=== PATIENT | male | born 1935 | race Caucasian/White ===

== ENCOUNTER 2018-06-16 17:39 | Inpatient (IN) | payer MEDICARE, MEDICAID ==
--- NOTE | ~2018-06-16 | PN ---
PATIENT:LUIS FELIPE MUSE MEDICAL RECORD: [id number] LOCATION:[facility] ADMISSION DATE: 06/16/18 PROGRESS NOTE DATE OF SERVICE: 06/20/2018 SUBJECTIVE: The patient's case was discussed with staff. He has no new complaint. OBJECTIVE: The patient is in good behavioral control with limited insight about his condition. He tolerates his medicines well. ASSESSMENT: No change in diagnoses. PLAN: Supportive and educational interventions were made. The patient will be transitioned out of the hospital tomorrow. His long-term prognosis is guarded. TRANSINT:[id number] Voice Confirmation ID: [id number] DOCUMENT ID: [id number] LEXUS FOX MD at 1407 CC: [id number] DICTATION DATE: 06/20/18 1511 SENIOR MEDIA DIRECTOR: 06/20/18 1519 DIS IN 06/21/18 [place] [id number] [place] [address]
--- NOTE | ~2018-06-16 | PN ---
PATIENT:LUIS FELIPE MUSE MEDICAL RECORD: [id number] LOCATION:[facility] ADMISSION DATE: 06/16/18 PROGRESS NOTE DATE OF SERVICE: 06/18/2018 SUBJECTIVE: The patient's case was discussed with staff. He has no new complaint. OBJECTIVE: The patient has pretty limited insight about his situation. He does tolerate his medicines well. Eye contact is fair. Concentration is fair. He has not been agitated, but I do not think that is related to an improvement in his condition so much as it is the constant supervision and redirection staff is able to provide. I am going to start him on a low dose of Geodon for his agitated behavior. TRANSINT:[id number] Voice Confirmation ID: [id number] DOCUMENT ID: [id number] LEXUS FOX MD at 1440 CC: [id number] DICTATION DATE: 06/18/18 1411 CORK INSULATOR: 06/18/18 1428 ADM IN [facility] [address] [place] [address]
--- NOTE | ~2018-06-16 | DS ---
PATIENT:LUIS FELIPE MUSE :35 MEDICAL RECORD: [id number] DISCHARGE SUMMARY ADMISSION DATE: 06/16/18 DISCHARGE DATE: 06/21/18 IDENTIFYING DATA: The patient is 82 years old and he is known to me from previous clinical contact. He was admitted to the hospital about a month ago because of aggression at the [facility]. He was discharged about 10 days ago, but then rapidly returned after a week absence with the same problems. The patient has dementia. He does not have any short-term memory, but the fci was indicating that he had been violent and aggressive. Minor adjustments were made to his medications. HOSPITAL COURSE: The patient was admitted to the hospital and started on the same medicines that he was on previously here. He showed no evidence of aggression and was subsequently transitioned back to the [facility]. DISCHARGE DIAGNOSES: AXIS I: Senile dementia of the Alzheimer's type with behavioral disturbances. AXIS II: None. AXIS III: Diabetes, hypertension, anemia of chronic disease. AXIS IV: Moderate stressors. AXIS V: Global assessment of functioning is 30. PLAN: At the time of discharge, the patient was not aggressive. He was tolerating his medicines well. I strongly suspect that the problem is environmental and at the fci, and not related to something underlying his pharmacologic management. I do understand that the fci is much more sparsely staffed than an acute inpatient psychiatric unit where there is someone always available practically at arms length to redirect or attend to the patient's needs. I know that is not something that can happen in long-term care setting, but nevertheless, I think the problems are environmental; and if he returns again, I am going to strongly recommend that a different fci setting, perhaps a dementia unit, would be more appropriate to meet his needs rather than returning him to inpatient psychiatric care every time he has a behavioral outburst. TRANSINT:[id number] Voice Confirmation ID: [id number] DOCUMENT ID: [id number] LEXUS FOX MD at 1341 CC: [id number] DICTATION DATE: 06/21/18 1516 FIRE TECHNICIAN: 06/21/18 1529 DIS IN 06/21/18 [place] [id number] [place] [id number]
--- NOTE | ~2018-06-16 | PN ---
PATIENT:LUIS FELIPE MUSE MEDICAL RECORD: [id number] LOCATION:[facility] ADMISSION DATE: 06/16/18 PROGRESS NOTE DATE OF SERVICE: 06/19/2018 SUBJECTIVE: The patient's case was discussed with staff. He has no new complaint. OBJECTIVE: The patient is in good behavioral control with limited insight about his condition. He generally tolerates his medicines well. He was agitated last night and required p.r.n. medications. I have reviewed his current medications and think that this was probably an unfortunate isolated event related to some of the disruptive patients on the unit upsetting him. ASSESSMENT: No change in diagnoses. PLAN: Current medicines have been reviewed and will be maintained. TRANSINT:[id number] Voice Confirmation ID: [id number] DOCUMENT ID: [id number] LEXUS FOX MD at 1449 CC: [id number] DICTATION DATE: 06/19/18 1520 AUTOMATIC WINDER OPERATOR: 06/19/18 1558 ADM IN [place] [id number] [place] [id number]
--- NOTE | ~2018-06-16 | PSY ---
PATIENT NAME:LUIS FELIPE MUSE MEDICAL RECORD: [id number] : 35 LOCATION:[facility] ADMISSION DATE: 06/16/18 ACCOUNT: [id number] PSYCHIATRIC EVALUATION DATE OF EVALUATION: 06/17/18 IDENTIFYING DATA: The patient is 82 years old and he was admitted to the hospital on a voluntary basis. CHIEF COMPLAINT: Aggression. HISTORY OF PRESENT ILLNESS: The patient was discharged from here about a week ago. He currently returns from the half-way, agitated. He apparently was violent there and aggressive. He has no recollection of this and did receive p.r.n. medication in the Emergency Room. PAST MEDICAL HISTORY: Significant for diabetes and chronic anemia. PAST PSYCHIATRIC HISTORY: Significant for dementia with 1 previous recent hospitalization here. FAMILY HISTORY: Unknown. SOCIAL HISTORY: The patient is from [place]. He is and his lives in [place]. He lives in a half-way here. 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 He has no history of drug or alcohol abuse. MENTAL STATUS EXAMINATION: The patient is awake, alert and oriented to person only. His mood is flat. His affect is constricted. Thought processes are circumstantial. Memory, concentration, and abstraction abilities are at least moderately impaired and he denies that he would actively seek to harm himself or others as well as overt psychotic symptoms. ASSETS: Stable living environment. LIABILITIES: Limited insight. DIAGNOSTIC IMPRESSION: AXIS I: Senile dementia of the Alzheimer's type with behavioral disturbances. AXIS II: None. AXIS III: Diabetes, hypertension, and anemia of chronic disease. AXIS IV: Moderate stressors. AXIS V: Global assessment of functioning is 25. PLAN: At this time, the patient is admitted to the hospital secondary to aggressive and agitated behavior associated with a dementing illness. He will be evaluated both medically, psychologically and socially. He will be treated with both memory enhancing and mood stabilizing medications as deemed appropriate. His long-term prognosis is guarded. TRANSINT:[id number] Voice Confirmation ID: [id number] DOCUMENT ID: [id number] LEXUS FOX MD at 1319 CC: [id number] DICTATION DATE: 06/17/18 1022 ORAL HEALTH THERAPIST: 06/17/18 1140 ADM IN [place] [address] [place] [address]
[2018-06-16 17:51] VITALS: BP 118/57
[2018-06-16 19:35] LABS: BASOPHILS 0.3 % (0-2); EOSINOPHILS 1.9 % (0-7); HEMATOCRIT 22.6 % (42.0-54.0); IMMATURE GRANULOCYTES 0.4 % (0-5); MCH 33.3 pg (26.0-34.0); MCV 107.6 fL (80.0-100.0); MEAN PLATELET VOLUME 10.5 fL (7.4-10.4); MONOCYTES 10.6 % (2-11); NEUTROPHILS 56.8 % (40-80); RDW 18.7 % (11.5-14.5); WBC 6.8 10x3/uL (4.8-10.8)
[2018-06-16 19:39] LABS: PLATELET COUNT 159 10x3/uL (130-400)
[2018-06-16 19:49] LABS: UDS - AMPHET NEGATIVE QUAL (NEGATIVE); UDS - BARB NEGATIVE QUAL (NEGATIVE); UDS - BENZO NEGATIVE QUAL (NEGATIVE); UDS - COCAINE NEGATIVE QUAL (NEGATIVE); UDS - OPIATE NEGATIVE QUAL (NEGATIVE); UDS - PCP NEGATIVE QUAL (NEGATIVE); UDS - THC NEGATIVE QUAL (NEGATIVE)
[2018-06-16 19:53] LABS: ALBUMIN 2.5 g/dL (3.4-5.0); ANION GAP 11.9 mmol/L (8-16); BILIRUBIN - TOTAL 0.3 mg/dL (0.2-1.3); CALCIUM 8.2 mg/dL (8.5-10.1); CARBON DIOXIDE 26.2 mmol/L (21.0-32.0); CREATININE - SERUM 1.4 mg/dL (0.6-1.3); POTASSIUM - SERUM 5.1 mmol/L (3.5-5.1); PROTEIN - SERUM 7.1 g/dL (6.4-8.2)
[2018-06-16 20:20] LABS: APPEARANCE CLEAR (CLEAR); BILIRUBIN NEGATIVE (NEGATIVE); COLOR YELLOW (YELLOW); GLUCOSE 50 mg/dL (NEGATIVE); KETONE SMALL mg/dL (NEGATIVE); NITRITE NEGATIVE (NEGATIVE); PROTEIN NEGATIVE (NEGATIVE); SPECIFIC GRAVITY 1.015 (1.005-1.020); UROBILINOGEN NORMAL (NORMAL)
[2018-06-16 20:22] LABS: BACTERIA FEW /hpf (NONE SEEN); EPITHELIAL CELLS 0-5 /hpf (0-5); RED CELLS - URINE 0-5 /hpf (0-5)
[2018-06-17 06:07] VITALS: BP 128/56; BMI 30.4
[2018-06-17 07:13] LABS: BASOPHILS 0.5 % (0-2); EOSINOPHILS 2.7 % (0-7); HEMATOCRIT 26.5 % (42.0-54.0); HEMOGLOBIN 8.2 g/dL (13.5-17.5); IMMATURE GRANULOCYTES 0.6 % (0-5); LYMPHOCYTES 24.8 % (15-50); MCH 32.2 pg (26.0-34.0); MCHC 30.9 g/dL (31.0-37.0); MCV 103.9 fL (80.0-100.0); MEAN PLATELET VOLUME 10.7 fL (7.4-10.4); MONOCYTES 11.6 % (2-11); NEUTROPHILS 59.8 % (40-80); PLATELET COUNT 164 10x3/uL (130-400); RBC 2.55 10x6/uL (4.20-6.10); RDW 20.6 % (11.5-14.5); WBC 6.3 10x3/uL (4.8-10.8)
[2018-06-17 07:35] LABS: ALBUMIN 2.5 g/dL (3.4-5.0); ANION GAP 9.1 mmol/L (8-16); BILIRUBIN - TOTAL 0.34 mg/dL (0.2-1.3); CALCIUM 8.3 mg/dL (8.5-10.1); CARBON DIOXIDE 26.7 mmol/L (21.0-32.0); CHOL - HDL RATIO 2.5 ratio (2.3-4.9); CREATININE - SERUM 1.1 mg/dL (0.6-1.3); LDL-HDL RATIO 0.9 ratio (1.5-3.5); POTASSIUM - SERUM 4.8 mmol/L (3.5-5.1); PROTEIN - SERUM 7.1 g/dL (6.4-8.2); THYROID STIMULATING HORMONE 5.01 uIU/mL (0.36-3.74)
[2018-06-17 08:00] VITALS: BP 144/69
[2018-06-17] MEDS ORDERED: ALDACTONE50 MG PO (13:24)
[2018-06-17] MEDS ORDERED: LANOXIN125 MCG PO (13:25)
[2018-06-17] MEDS ORDERED: LEVOTHYROXINE50 MCG PO (13:27)
[2018-06-17] MEDS ORDERED: DEPAKOTE500 MG PO (13:27)
[2018-06-17] MEDS ORDERED: DEMADEX10 MG PO (13:27)
[2018-06-17] MEDS ORDERED: COREG6.25 MG PO (13:28)
[2018-06-17] MEDS ORDERED: DONEPEZIL HCL10 M1 PO (13:29)
[2018-06-17] MEDS ORDERED: CRESTOR10 MG PO (13:30)
[2018-06-17] MEDS ORDERED: ZETIA10 MG PO (13:30)
[2018-06-17] MEDS ORDERED: ELIQUIS2.5 MG PO (13:31)
[2018-06-17] MEDS ORDERED: METOLAZONE5 MG PO (13:32)
[2018-06-17] MEDS ORDERED: ALDACTONE100 MG PO (13:32)
[2018-06-17] MEDS ORDERED: TORSEMIDE20 MG PO (13:32)
[2018-06-17] MEDS ORDERED: LEVEMIR 100 UNIT/ML SC (14:42)
[2018-06-17] MEDS ORDERED: BAYER CHEWABLE81 MG PO (14:43)
[2018-06-17] MEDS ORDERED: VITAMIN B-121000 MCG PO (14:43)
[2018-06-17] MEDS ORDERED: FERROUS SULFAT325 MG (14:44)
[2018-06-17] MEDS ORDERED: SENNA LAXATIVE8.6 MG (14:45)
[2018-06-17] MEDS ORDERED: VITAMIN C WIT1000 MG (14:46)
[2018-06-17 19:25] VITALS: BP 123/49
[2018-06-18 08:21] VITALS: Wt 77.6 kg
[2018-06-18 12:11] VITALS: BP 115/59
[2018-06-18 19:31] VITALS: BP 139/66
[2018-06-19 06:28] LABS: BASOPHILS 0.5 % (0-2); EOSINOPHILS 2.8 % (0-7); HEMATOCRIT 23.8 % (42.0-54.0); HEMOGLOBIN 7.6 g/dL (13.5-17.5); IMMATURE GRANULOCYTES 0.7 % (0-5); LYMPHOCYTES 26.5 % (15-50); MCH 32.5 pg (26.0-34.0); MCHC 31.9 g/dL (31.0-37.0); MEAN PLATELET VOLUME 10.4 fL (7.4-10.4); NEUTROPHILS 56.5 % (40-80); PLATELET COUNT 168 10x3/uL (130-400); RBC 2.34 10x6/uL (4.20-6.10)
[2018-06-19 06:30] LABS: MCV 101.7 fL (80.0-100.0)
[2018-06-19 07:00] VITALS: BP 140/61
[2018-06-19 08:23] LABS: RAPID PLASMA REAGIN Non Reactive (Non Reactive)
[2018-06-19 09:17] LABS: FOLATE (FOLIC ACID) - SERUM 12.9 ng/mL (>3.0)
[2018-06-19 20:46] VITALS: BP 133/58
[2018-06-20 06:31] LABS: BASOPHILS 0.4 % (0-2); EOSINOPHILS 2.7 % (0-7); HEMATOCRIT 24.2 % (42.0-54.0); HEMOGLOBIN 7.6 g/dL (13.5-17.5); IMMATURE GRANULOCYTES 0.2 % (0-5); LYMPHOCYTES 28.8 % (15-50); MCH 32.1 pg (26.0-34.0); MCHC 31.4 g/dL (31.0-37.0); MCV 102.1 fL (80.0-100.0); MEAN PLATELET VOLUME 10.4 fL (7.4-10.4); MONOCYTES 9.8 % (2-11); NEUTROPHILS 58.1 % (40-80); PLATELET COUNT 175 10x3/uL (130-400); RBC 2.37 10x6/uL (4.20-6.10); RDW 18.7 % (11.5-14.5); WBC 5.5 10x3/uL (4.8-10.8)
[2018-06-20 10:28] VITALS: BP 93/50
[2018-06-20 12:49] LABS: % SATURATION 14 % (15-55); IRON 43 ug/dl (35-150); TOTAL IRON BIND CAPACITY 302 ug/dl (260-445); UNSAT IRON BIND CAPACITY 259 ug/dl (150-375)
[2018-06-20] MEDS ORDERED: FEXOFENADINE H180 MG PO (15:12)
[2018-06-20] MEDS ORDERED: COREG 3.1253.125 MG PO (15:13)
[2018-06-20] MEDS ORDERED: GEODON20 MG PO (15:14)
[2018-06-20] MEDS ORDERED: SENNA8.6 MG PO (15:15)
[2018-06-20] MEDS ORDERED: PROTONIX40 MG PO (15:15)
[2018-06-20] MEDS ORDERED: FOLATE0.4 MG PO (15:16)
[2018-06-20 20:27] VITALS: BP 117/49
[2018-06-21 10:09] VITALS: BP 140/73
[2018-06-21 11:20] LABS: BASOPHILS 0.5 % (0-2); EOSINOPHILS 2.7 % (0-7); HEMATOCRIT 25.3 % (42.0-54.0); HEMOGLOBIN 7.8 g/dL (13.5-17.5); IMMATURE GRANULOCYTES 0.4 % (0-5); LYMPHOCYTES 29.1 % (15-50); MCHC 30.8 g/dL (31.0-37.0); MCV 103.7 fL (80.0-100.0); MEAN PLATELET VOLUME 10.3 fL (7.4-10.4); MONOCYTES 11.2 % (2-11); NEUTROPHILS 56.1 % (40-80); PLATELET COUNT 206 10x3/uL (130-400); RBC 2.44 10x6/uL (4.20-6.10); RDW 18.7 % (11.5-14.5)
[2018-06-21 11:21] LABS: WBC 7.4 10x3/uL (4.8-10.8)
[2018-06-21 11:45] LABS: ALBUMIN 2.8 g/dL (3.4-5.0); ANION GAP 10.6 mmol/L (8-16); BILIRUBIN - TOTAL 0.39 mg/dL (0.2-1.3); CALCIUM 8.5 mg/dL (8.5-10.1); CARBON DIOXIDE 27.6 mmol/L (21.0-32.0); CREATININE - SERUM 1.7 mg/dL (0.6-1.3); POTASSIUM - SERUM 4.2 mmol/L (3.5-5.1); PROTEIN - SERUM 7.1 g/dL (6.4-8.2)
== END 2018-06-21 11:30 | DRG 57 ==
LOC: D.ER 17:39 → D.PSYCH 21:54
PROVIDERS: Family Medicine; Psychiatry & Neurology Psychiatry
DX: G30.1 Alzheimer's disease with late onset (principal); F02.81 Dementia in other diseases classified elsewhere, unspecified severity, with behavioral disturbance; I13.0 Hypertensive heart and chronic kidney disease with heart failure and stage 1 through stage 4 chronic kidney disease, or unspecified chronic kidney disease; E11.22 Type 2 diabetes mellitus with diabetic chronic kidney disease; N18.9 Chronic kidney disease, unspecified; I50.9 Heart failure, unspecified; D63.8 Anemia in other chronic diseases classified elsewhere; I25.10 Atherosclerotic heart disease of native coronary artery without angina pectoris; Z74.09 Other reduced mobility; R32 Unspecified urinary incontinence; K59.00 Constipation, unspecified; D75.89 Other specified diseases of blood and blood-forming organs; J30.9 Allergic rhinitis, unspecified; E53.8 Deficiency of other specified B group vitamins; E55.9 Vitamin D deficiency, unspecified; I48.2 Chronic atrial fibrillation; E88.09 Other disorders of plasma-protein metabolism, not elsewhere classified; E03.9 Hypothyroidism, unspecified; K29.70 Gastritis, unspecified, without bleeding